=== PATIENT | male | born 1960 ===

== ENCOUNTER 2024-09-08 12:09 | Emergency (ER) | payer OTHER, SELFPAY ==
[2024-09-08 13:16] VITALS: BP 128/84; PULSE 82; RESP 18; TEMP 36.4; O2SAT 98
--- NOTE | 2024-09-08 14:33 | XR_ITS ---
WS: [id number] Exam: XR shoulder LT min 2V* [id number] Date/Time of Exam: 09/08/2024 2:37 PM Reason For Exam: trauma/fall No fracture noted. Minimal degenerative change of the glenohumeral joint and the greater tuberosity o f the humerus. Normal soft tissues. XR/XR shoulder LT min 2V* [id number] IMPRESSION: 1. Minimal DJD.
--- NOTE | 2024-09-08 14:33 | W.ED.UPPEXIN ---
HPI - Extremity Injury (Upper) General: Chief Complaint: Extremity Problem,Nontraumatic Stated Complaint: Left shoulder pain/post fall Time Seen by Provider: 09/08/24 14:15 Source: patient and family (son) Mode of arrival: ambulatory Limitations: no limitations History of Present Illness: Patient is a 64-year-old male who presents to ED today along with his son who provides translation, here for concerns of left shoulder pain. Son states he fell 2 months ago and injured left shoulder. [place] said it was crushed but will heal fine . Patient has reportedly had pain in the shoulder since the injury. He has no other injuries or complaints at this time. No numbness, tingling, loss of sensation to the extremity. He has not noticed any color or temperature changes to the arm. MD complaint: injury to: left and shoulder Onset (ago): month(s) Other Extremity Injury: Left: shoulder Other injuries: none Relieving factors: immobilization Exacerbating factors: movement of extremity Context: fall Associated symptoms: Reports no associated symptoms; Denies neck pain or weakness in extremities Related Data Allergies Allergy/AdvReac Type Severity Reaction Status Date / Time No Known Allergies Allergy Verified 09/08/24 13:20 Review of Systems Card: Denies: chest pain Resp: Denies: dyspnea Musc: Reports: joint pain (L shoulder); Denies: neck pain, extremity pain, extremity swelling, joint swelling, joint redness, joint warmth or muscle weakness Neuro: Denies: numbness in extremities, weakness in extremities or sensory changes Physical Exam Const: COMMON NORMALS: no acute distress, average body habitus, patient oriented x3, no limitations, healthy appearing, alert and well nourished GENERAL APPEARANCE: cooperative ORIENTATION/CONSCIOUSNESS: Yes awake, Yes oriented to person, Yes oriented to place and Yes oriented to time Neck/C-Spine: COMMON NORMALS: full ROM GENERAL: Yes normal visual inspection Resp: COMMON NORMALS: normal respiratory effort Cardio: COMMON NORMALS: regular rate and regular rhythm RATE: regular rate RHYTHM: regular rhythm Back/Pelvis: COMMON NORMALS: thoracic and lumbar spine normal to inspection, no thoracic nor lumbar tenderness and thoraco-lumbar ROM normal Extremity: COMMON NORMALS: capillary refill normal and no joint enlargement GENERAL: Yes normal exam except as noted LEFT UPPER EXTREMITY: Yes shoulder joint (no obvious bony deformities) Left shoulder joint: Yes ROM (limited due to discomfort ) and Yes neurovascular exam (normal) Neuro: COMMON NORMALS: patient oriented x3, moves all extremities, no focal motor deficits and no sensory deficits noted SENSORIUM/ORIENTATION: Yes alert, Yes oriented to person, Yes oriented to place and Yes oriented to time Course Vital Signs: Vital signs: Vital Signs Temperature 97.6 F 09/08/24 13:16 Pulse Rate 82 09/08/24 13:16 Respiratory Rate 18 09/08/24 13:16 Blood Pressure 128/84 09/08/24 13:16 Pulse Oximetry 98 09/08/24 13:16 Oxygen Delivery Me thod Room Air 09/08/24 13:16 MDM - Extremity Injury (Upper) Medical Decision Making XR negative for fractures. Minimal DJD. He states he is comfortable with [id number] analgesics. We have case management set him up to see a primary care provider for further evaluation and treatment. Lab Data Radiology Impressions Shoulder X-Ray 09/08/24 14:33 IMPRESSION: 1. Minimal DJD. All radiology interpretation(s) finalized by discharge Discharge Plan Discharge Patient Disposition: Home Clinical Impression: Left shoulder pain Condition: Stable Discharge Orders: Discharge ED (Routine); Ordered 09/08/24 Ordered By: Lillie Mazariegos Activity Restrictions/Additional Instructions: As we discussed, case management should contact you at the number you provided to set him up with a primary care provider for further evaluation and treatment. This may consist of continued conservative therapies, physical therapy, advanced imaging such as an MRI, among other things. Coding Level of Care Code ED Data [employer]
[2024-09-08 15:17] VITALS: BP 124/73; PULSE 77; O2SAT 95
--- NOTE | 2024-09-11 02:39 | DCPLANNER ---
Message sent to clinic for PCP
== END 2024-09-08 15:18 | disposition home or self-care (01) ==
PROVIDERS: Emergency Provider Physician Assistant
DX: M25.512 Pain in left shoulder (principal)
CPT/HCPCS: 73030; 99283